=== PATIENT | male | born 1960 | race Asian ===

== ENCOUNTER 2016-10-03 12:11 | Day surgery (SDC) | payer MEDICARE ==
[2016-10-03] MEDS ORDERED: XYLOCAINE 1%/ EPI 1:100,000 INFILTRATI ONE ×2 (14:06→14:32)
--- NOTE | 2016-10-03 20:56 | Operative Report ---
PREOPERATIVE DIAGNOSIS: Mass, right scrotal area. POSTOPERATIVE DIAGNOSIS: Inclusion cyst. ANESTHESIA: Local. I used about 5 mL of 0.25% Marcaine. FINDINGS: The patient had a mass that is about 3 x 2 x 2 cm located in the scrotal area of the right side inferiorly. It was giving him some pain. 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 DESCRIPTION OF PROCEDURE: With the patient in supine position, after cleansing and draped in usual fashion, I infiltrated the area with about 4-5 mL of 0.25% Marcaine and then an incision was performed over the mass deep and subcutaneous tissue. After which, the mass was cored out in toto. We were well satisfied and put a few stitches for the skin and subcutaneous tissue x 2. We had good hemostasis. Then, a bandage and 4 x 4s applied and the patient was then transferred to the outpatient to go home. JOB# [id number] JAMES/MORA
--- NOTE | 2016-10-03 22:32 | Discharge Summary ---
FINAL DIAGNOSIS: Inclusion cyst, right scrotum. HOSPITAL COURSE: This man came to my office this morning complaining of pain to the area. He came with his aunt who was taking care of him. He is mentally retarded. So, the examination showed the above, about 3 x 3 x 2 cm mass in the scrotum on the right side inferiorly. He was taken to the in the minor procedure room where he underwent removal of mass under local anesthesia and then he was discharged home after applying a bandage. The patient was then asked as to call me . Awaiting final pathology report. JOB# [id number] JAMES/MORA
== END 2016-10-03 12:12 | disposition home or self-care (01) ==
LOC: OR 12:11
PROVIDERS: ATTEND Surgery
DX: L72.0 Epidermal cyst (principal); G80.8 Other cerebral palsy; F79 Unspecified intellectual disabilities
CPT/HCPCS: 88305